=== PATIENT | female | born 1955 | race Caucasian/White ===

== ENCOUNTER 2021-08-21 09:55 | Outpatient (RCR) | payer MEDICARE, SELFPAY ==
[2021-08-21] MEDS: ACETAMINOPHEN 325 MG TABLET 650 MG PO (12:17)
[2021-08-21] MEDS: diphenhydrAMINE HCl CAP 25 MG CAPSULE PO (12:18)
[2021-08-21] MEDS: FAMOTIDINE 20 MG TABLET PO (12:18)
[2021-08-21 12:22] VITALS: BP 130/52; PULSE 77; TEMP 36.2; O2SAT 97
[2021-08-21 13:43] VITALS: BP 121/53; PULSE 66; O2SAT 98
== END 2021-08-21 17:00 ==
LOC: AMCINF 09:55
PROVIDERS: PCP Registered Nurse; Visit Provider Internal Medicine Hematology & Oncology
DX: U07.1 COVID-19 (principal); I10 Essential (primary) hypertension; E11.9 Type 2 diabetes mellitus without complications
CPT/HCPCS: A9270; M0247; Q0247

== ENCOUNTER 2022-11-18 13:43 | Outpatient (CLI) | payer MEDICARE, SELFPAY ==
--- NOTE | ~2022-11-18 | CT_ITS ---
EXAMINATION: CT abdomen pelvis wo/w con DATE: 11/18/2022 14:52 INDICATION: Gross hematuria TECHNIQUE: Computed tomography (CT) of the abdomen and pelvis was performed without and with 130 cc O mnipaque 350 intravenous contrast. The dose-length product was 3074.05 mGy-cm. Automated exposure con trol and iterative reconstruction technique were employed. COMPARISON: None. FINDINGS: Lung bases are unremarkable. No significant pleural or pericardial effusion. There are bila teral breast implants. There is a mass along the posterior margin of the bladder measuring 3.5 x 1.4 cm, suspicious for transitional cell carcinoma. Ureters are normal in course and caliber. Kidneys are unremarkable. No hydronephrosis. Mild atherosclerosis without aneurysm. No significant lymphadenopathy. No free air or free fluid. Fat ty infiltration of the liver. Gallbladder is present. The spleen, pancreas, adrenal glands are unrema rkable. Moderate lumbar spondylosis. Fatty infiltration of the liver. The spleen, pancreas, adrenal glands and kidneys are unremarkable. IMPRESSION: 1. Plaque-like mass posterior margin of the bladder, suspicious for transitional cell carcinoma. Reviewed, dictated and finalized at location A. IMPRESSION: 1. Plaque-like mass posterior margin of the bladder, suspicious for transitiona l cell carcinoma.
[2022-11-18 14:36] LABS: Estimated Glomerular Filt Rate > 60
== END 2022-11-18 13:44 | disposition home or self-care (01) ==
PROVIDERS: PCP Registered Nurse
DX: R31.0 Gross hematuria (principal); N32.9 Bladder disorder, unspecified
CPT/HCPCS: 74178; Q9967